=== PATIENT | female | born 1985 | race Caucasian/White ===

== ENCOUNTER → 2018-10-14 | Outpatient (CLI) | payer OTHER ==
[~2018-10-14] MED LIST: BCP; BIOT5CAP2; SUMA50TA2
== END | disposition home or self-care (01) ==
LOC: LAB 10:32
PROVIDERS: ATTEND Obstetrics & Gynecology
DX: K75.9 Inflammatory liver disease, unspecified (principal); Z72.51 High risk heterosexual behavior
CPT/HCPCS: 36415; 86703; 87340